=== PATIENT | male | born 1995 | race African-American/Black ===

== ENCOUNTER 2024-12-12 10:02 | Emergency (ER) | payer OTHER, SELFPAY ==
--- NOTE | ~2024-12-12 | XR_ITS ---
CLINICAL HISTORY: pain 3 views lumbar spine Comparison: None Findings: Normal vertebral body alignment. No acute fractures or dislocation. No significant degenerative change. IMPRESSION: No acute findings. This document has been electronically signed by: Dalila Soliz MD on 12/12/2024 16:58:02
[2024-12-12 10:11] VITALS: BP 128/84; PULSE 78; RESP 16; TEMP 36.8; O2SAT 97; BMI 26.2
[2024-12-12 16:25] VITALS: BP 119/75; PULSE 63; RESP 18; O2SAT 100
--- NOTE | 2024-12-12 17:17 | ED_ITS ---
HPI - Back Pain/Injury General Chief Complaint: Back Pain/Injury Stated Complaint: Back pain Time Seen by Provider: 12/12/24 17:20 Source: patient and RN notes reviewed Mode of arrival: ambulatory Limitations: no limitations History of Present Illness ED Provider: Debora Ramos PA-C HPI Narrative: This is a 29-year-old male who presents emergency department with complaints of back pain for the last 2 weeks. Patient denies any recent trauma, injury, heavy lifting or falls. He denies any numbness, tingling, or weakness. No fevers, chills, chest pain, shortness of breath, abdominal pain, nausea, vomiting or diarrhea. No urinary symptoms. No urinary or bowel retention or incontinence. Denies history of back pain in the past. No history of IVDA. Denies taking any medications at home to treat his current symptoms. Back pain worsens with movement. She also states that he has had dental pain, states that his left upper dentition has cracked, and he has had increased pain. He states that he has had sensitivity over this tooth. No facial swelling. He has a dental appointment tomorrow. No difficulty swallowing or breathing. MD elicited complaint: back pain Onset (ago): day(s) Timing: constant Severity: moderate Similar Symptoms Previously: No Quality: aching Location: lumbar spine Exacerbating factors: movement Relieving factors: none Associated symptoms: denies other symptoms Work related injury: No Related Data Previous Rx's ?Medication ?Instructions ?Recorded acetaminophen 500 mg tablet 1,000 mg (2 x 500 mg) PO Q8H PRN 12/12/24 (Tylenol Extra Strength) pain #30 tabs amoxicillin 875 mg-potassium 1 tab PO BID 7 days #14 tabs 12/12/24 clavulanate 125 mg tablet ibuprofen 600 mg tablet 600 mg PO Q6H PRN pain #30 tabs 12/12/24 lidocaine 5 % topical patch 1 patch topical DAILY #30 ea 12/12/24 Allergies Allergy/AdvReac Type Severity Reaction Status Date / Time No Known Allergies Allergy Verified 12/12/24 10:14 Review of Systems Review of Systems: Yes all other systems are reviewed and are negative Constitutional: Constitutional: Reports as per [facility] Social History Social History Advance Directives: No Advance Directives Information Provided: No Physical Exam Vital Signs: Vital Signs: Last Vital Signs Temp 98.6 F 12/12/24 17:54 Pulse 63 12/12/24 17:54 Resp 18 12/12/24 17:54 BP 119/75 12/12/24 17:54 Pulse Ox 100 12/12/24 17:54 O2 Del Method Room Air 12/12/24 17:54 BMI result Body Mass Index 26.2 Const: General: cooperative, comfortable and no acute distress Orientation/consciousness: patient oriented x3 Limitations: no limitations HEENT: Other: Tooth 16. With mild tenderness palpation, no obvious dental decay. No surroun ding erythema or warmth. No fluctuance or induration. No evidence of abscess. No trismus, drooling, or dysphonia. Head: Yes normal to inspection, Yes normocephalic and Yes atraumatic Ears: hearing grossly normal bilaterally General nose exam: Normal external nose present Face and sinus: Yes normal facial exam Mouth: Normal oral and palatal mucosa present, oropharynx normal and moist mucous membranes Teeth and gingiva: other Throat: Yes posterior oropharynx normal Eyes: General: appearance normal, both eyes and all related structures Eyelids: Yes eyelids normal Conjunctivae: conjunctivae normal Sclerae: sclerae normal Pupils: Equal, round and reactive pupils present EOM: EOMs intact bilaterally Neck: Neck: Yes normal visual inspection, Yes full ROM and Yes no lymphadenopathy Lymphatic: no lymphadenopathy noted Chest: Chest palpation & inspection: normal inspection of the chest Resp: Effort & Inspection: normal respiratory effort and able to speak in complete sentences Auscultation: clear to auscultation bilaterally, no crackles, no rales, no rhonchi and no wheezes Cardio: Rate: regular rate Rhythm: regular rhythm Heart sounds: S1 normal heart sound present and S2 normal heart sound present GI: Inspection: Yes normal to inspection Back/Spine/Pelvis: Other: No midline spine tenderness on examination, mild tenderness palpation along the lumbar paraspinous muscles bilaterally, pain with extension and flexion of the back as well as lateral movements. DTRs are 2+. No overlying skin changes or warmth. Skin: General skin exam: no rashes or lesions noted Trauma: no lacerations or abrasions Wounds: no wounds Neuro: General: patient oriented x3 and moves all extremities Cranial nerves: Yes Equal, round and reactive pupils present Extrem: General: Yes normal to inspection Right upper extremity: normal to inspection Left upper extremity: normal to inspection Right lower extremity: normal to inspection Left lower extremity: normal to inspection Medical Decision Making Medical Decision Making MDM Narrative: This is a 29-year-old male, with no known medical problems, [facility] complaints of low back pain for the last 2 weeks. On arrival, vital signs within normal limits. He is speaking in full sentences under no acute distress. He is ambulatory with steady gait. Patient with tenderness palpation along the lumbar paraspinous muscles. X-rays were obtained revealing no acute abnormalities. No red flag back symptoms. No history of IVDA. This patient presents with back pain most consistent with lumbago. Differential diagnoses includes lumbago versus musculoskeletal spasm / strain versus sciatica.No back pain red flags on history or physical. Presentation not consistent with fracture (no trauma, no bony tenderness to palpation), cauda equina syndrome (no bowel or urinary incontinence/retention, no saddle anesthesia, no distal weakness), pyelonephritis (afebrile, no CVAT, no urinary symptoms).Discussed findings with patient. Also states that he has had left upper dental pain. He has tenderness palpation along this left upper tooth, will treat with course of Augmentin. He has a follow-up with a dentist tomorrow. Given strict return precautions. He understands and agrees with plan. Patient stable for discharge. Differential Diagnosis Differential Diagnoses: The differential diagnosis associated with the presentation includes Lumbar strain, sprain, contusion, fracture Radiology Impression Discussion of test interpretation with radiology: I have reviewed the radiologist's reading. Radiologist Impression: [address] [address] XRay Report Signed Patient: Juan Topete MR#: [id number] : 1995 Acct:[id number] Age/Sex: 29 / M ADM Date: 12/12/24 Loc: HO.ED Attending Dr: Ordering Physician: Debora Ramos Date of Service: 12/12/24 Procedure(s): XR lumbar spine 2-3V Accession Number(s): [id number] cc: Debora Ramos; Physician,Unknown ~ CLINICAL HISTORY: pain 3 views lumbar spine Comparison: None Findings: Normal vertebral body alignment. No acute fractures or dislocation. No significant degenerative change. IMPRESSION: No acute findings. This document has been electronically signed by: Dalila Soliz MD on 12/12/2024 16:58:02 Discharge Plan Discharge Clinical Impression: Back pain, Pain, dental Patient Disposition: Home, Self-Care Instructions: Acute Low Back Pain (ED), Back Pain (ED) Additional Instructions: You were seen in the emergency department due to back pain and dental pain. Your x-ray was normal. Your symptoms are likely attributed to musculoskeletal pain, please alternate between ibuprofen and or Tylenol. You can use Lidoderm patches as needed for pain. Gentle stretching, heat or ice can also help. Do not directly apply heat or ice to the Lidoderm patches as this can cause your skin to burn. I am starting you on an antibiotic for your dental pain. Please take full course of antibiotic as directed. You need to follow-up with a dentist, call to make an appointment. If any new or worsening symptoms occur including but not limited to facial swelling, fevers, chills, chest pain, shortness of breath, please seek emergent care. Prescriptions: New ibuprofen 600 mg tablet 600 mg PO Q6H PRN (Reason: pain) Qty: 30 0RF amoxicillin-pot clavulanate 875-125 mg tablet 1 tab PO BID 7 Days Qty: 14 0RF acetaminophen [Tylenol Extra Strength] 500 mg tablet 1,000 mg PO Q8H PRN (Reason: pain) Qty: 30 0RF lidocaine 5 % adhesive patch,medicated 1 patch topical DAILY Qty: 30 0RF Rx Instructions: leave on most painful area for up to 12 hrs Stand Alone Forms: Work/School Release Interventions: ED Discharge Assessment Last Done: 12/12/24 17:54 Discharge Date/Time: 12/12/24 17:56 Print Language: Malian
[2024-12-12 17:54] VITALS: BP 119/75; PULSE 63; RESP 18; TEMP 37; O2SAT 100
== END 2024-12-12 17:56 | disposition home or self-care (01) ==
LOC: HO.ED 17:50
PROVIDERS: Emergency Provider Emergency Medicine; PCP Family Medicine
DX: M54.50 Low back pain, unspecified (principal); K08.89 Other specified disorders of teeth and supporting structures
CPT/HCPCS: 72100; 99282; 99283

== ENCOUNTER → 2024-12-12 16:23 | Outpatient (BNV) | payer OTHER, SELFPAY | PROVIDERS: Visit Provider Radiology Diagnostic Radiology | DX: M54.50 Low back pain, unspecified (principal) | CPT/HCPCS: 72100 ==

== ENCOUNTER 2025-01-13 11:55 | Outpatient (AMB) | payer OTHER, SELFPAY ==
--- NOTE | 2025-01-13 11:58 | MHC.PC.OV ---
Vital Signs 01/13/25 12:08 Height 5 ft 8 in Weight 173 lb BMI 26.3 BP 120/82 Blood Pressure Location Rt brachial Position Sitting Respiration 14 Pulse 87 Pulse Source Pulse Oximeter Pulse Oximetry (%) 97 Oxygen Delivery Method Room Air Intake Visit Reasons: est care/back pain Intake Note: Juan presents in the office today to establish care. Patient is suffering from low back pain that started about 2 months ago. Patient has taken OTC Ibuprofen but it does not work. Could have been from removing snow. 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 Patient moved from [facility] to the [facility] 8 months ago. Patient was initially living with his uncle, and he now lives in an apartment in [place]. He recently completed a [employer] program. Needs to schedule a physical. He has vaccine records that he will upload to the patient portal. He is agreeable to routine labs including screening test for STIs and HIV. The patient was seen at the emergency department on 12/12/2024 for back pain. He denied trauma, injury, heavy lifting or falls. He also endorsed dental pain in the left upper molar area. Reported that his tooth had cracked. X-ray of his lower back was normal. He was discharged with ibuprofen and Tylenol, and he says they do not help. He took a 7 day course of Augmentin for dental pain. He has not gotten established with a dentist yet. Patient says the tooth still hurts, but there is no drainage, swelling, fevers, chills or discharge. Patient says his back pain began about 2 months ago. It is worse when he bends forward and leans back. Does not recall injury or inciting event. Pain does not radiate. Pain is across both sides of the lower back. He describes it as sore and tight. There is no loss of bowel or bladder control. There is no numbness or tingling or weakness. Patient endorses mild situational depression since moving to [facility]. He misses his family. 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 He was also depressed when he did not have a job though he was higher last week. He is open to therapy. ROS: Constitutional: No unexplained weight loss, fever, chills, fatigue or night sweats. ENT: No hearing loss, sneezing, congestion, runny nose or sore throat. Respiratory: No shortness of breath, cough or sputum production. Cardiovascular: No chest pain, chest pressure or chest discomfort. Gastrointestinal: No anorexia, nausea, vomiting or diarrhea. No abdominal pain Genitourinary: No dysuria, hematuria, urinary frequency. Neurologic: No headache, dizziness, syncope, unilateral weakness, ataxia, numbness or tingling in the extremities. Skin: No rash Psychiatric: No SI/HI. Physical exam: Constitutional: Alert, in no distress. Mouth/Throat: No oropharyngeal lesions or obvious signs of decay or abscess. No swelling, discharge or redness. Neck: Supple, Full range of motion. No lymphadenopathy. Respiratory: Clear to auscultation. Cardiovascular: S1 S2 regular. No murmurs. Gastrointestinal: Abdomen soft, non-tender, non-distended. Normal bowel sounds. No palpable masses. Neurologic: No focal neurological deficits. Symmetric patellar reflexes. Moves all extremities spontaneously. Sensation intact bilaterally. Musculoskeletal: The back is nontender. There is no midline tenderness. Patient has pain with lumbar flexion and extension. Full range of motion. Negative straight leg raises bilaterally. Lower extremity strength 5/5 bilaterally. Extremities: Warm and well perfused. No clubbing, cyanosis or edema. 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 1. Little interest or pleasure in doing things: several days 2. Feeling down, depressed, or hopeless: several days 3. Trouble falling or staying asleep, or sleeping too much: several days 4. Feeling tired or having little energy: not at all 5. Poor appetite or overeating: not at all 6. Feeling bad about yourself - or that you are a failure or have let yourself or your family down: not at all 7. Trouble concentrating on things, such as reading the newspaper or watching television: not at all 8. Moving or speaking so slowly that other people could have noticed. Or the opposite - being so fidgety or restless that you have been moving around a lot more than usual: not at all 9. Thoughts that you would be better off or of hurting yourself in some way: not at all Total score: 3 Depression Screening Interpretation: Negative Depression Screening Done: Yes Source: Developed by Drs. Ismael Morrison, Gabriella Anderson, Kem Santiago and colleagues, with an educational sandee from [employer]. Thrive Questionnaire Date Thrive assessed: 01/06/25 I am a: Patient What is your living situation today?: I have a steady place to live Within the past 12 months, did the food you bought not last and you didn't have the money to get more?: Sometimes True Within the past 12 months, did you worry whether your food would run out before you got money to buy more?: Sometimes True Do you have trouble paying for medicines?: Yes Do you have trouble getting transportation to medical appointments?: Yes Do you have trouble paying your heating and electricity bill?: Yes Do you have trouble taking care of your child, family member or friend?: Yes Do you have trouble with day-to-day activities such as bathing, preparing meals, shopping, managing finances, etc.?: No Are you currently unemployed and looking for a job?: Yes Are you interested in more education?: Yes Please select the resources that you would like help with: Paying for medicine and Education Currently or been in a relationship where the following occur: Controlled Financially THRIVE Score: 5 AUDIT C Alcohol Use Questionnaire (AUDIT-C) 1. How often do you have a drink containing alcohol?: Never 2. How many drinks containing alcohol do you have on a typical day when you are drinking?: 1 or 2 3. How often do you have six or more drinks on one occasion?: Never Total Score: 0 STANTON-7 AMB Questionnaire STANTON-7 Feeling nervous, anxious, or on edge: 0 = Not at all Not being able to stop or control worryin = Not at all Worrying too much about different things: 1 = Several days Trouble relaxin = Several days Being so restless that it is hard to sit still: 1 = Several days Becoming easily annoyed or irritable: 1 = Several days Feeling afraid as if something awful might happen: 0 = Not at all Total STANTON-7 score (0-4 normal; 5-9 mild; 10-14 moderate; 15-21 severe): 4 Source: Developed by Drs. Ismael Morrison, Gabriella Anderson, Kem Santiago and colleagues, with an educational sandee from [employer]. Physical exam (Primary Care) Vital Signs: Last Vital Signs Pulse 87 01/13/25 12:08 Resp 14 01/13/25 12:08 BP 120/82 01/13/25 12:08 Pulse Ox 97 01/13/25 12:08 Oxygen Delivery Method Room Air 01/13/25 12:08 BMI result Body Mass Index 26.3 Tobacco/Smoking Status: Tobacco use Status Tobacco use date assessed 01/13/25 01/13/25 12:12 Patient Tobacco Use Status Never used Tobacco 01/13/25 12:12 e-Cigarette/Vaping Use Never Used 01/13/25 12:12 PHQ-9: PHQ-9 Score PHQ-9: Total score 3 01/13/25 12:20 Depression Screening Interpretation: Negative Thrive Assessment: Date of Thrive Assessment Date Thrive assessed 01/06/25 01/13/25 12:00 Currently or been in a relationship where the following occur: Controlled Financially Coding Level of Care Code New Pt Level 4 (57125) Complex EM visit Add On G2211 Diagnoses Situational depression F43.21 Lumbago M54.50 Screening examination for STI Z11.3 Screening for cardiovascular condition Z13.6 Pain, dental K08.89 Assessment & Plan Assessment & Plan (1) Situational depression: Code(s): F43.21 - Adjustment disorder with depressed mood Category: Medical Plan: Referred to behavioral health for counseling. (2) Lumbago: Code(s): M54.50 - Low back pain, unspecified Category: Medical Plan: Prescribed lidocaine patches. Reviewed dosing of ibuprofen and Tylenol. Refer to physical therapy. Patient was given the contact number to call select physical therapy in [place]. Re-evaluate in 6-8 weeks. (3) Screening examination for STI: Code(s): Z11.3 - Encounter for screening for infections with a predominantly sexual mode of transmission Category: Medical (4) Screening for cardiovascular condition: Code(s): Z13.6 - Encounter for screening for cardiovascular disorders Category: Medical (5) Pain, dental: Code(s): K08.89 - Other specified disorders of teeth and supporting structures Category: Medical Plan: I will send a message to Community navigation to see if we can assist in finding a dental home for the patient. Plan Follow up in 1-2 weeks for a physical exam. Orders: Orders Complete Blood Count no Diff Today M54.50 - Low back pain, unspecified, Z11.3 - Encounter for screening for infections with a predominantly sexual mode of transmission, Z13.6 - Encounter for screening for cardiovascular disorders Comprehensive Met. Panel Today M54.50 - Low back pain, unspecified, Z11.3 - Encounter for screening for infections with a predominantly sexual mode of transmission, Z13.6 - Encounter for screening for cardiovascular disorders CT NG by PCR Today M54.50 - Low back pain, unspecified, Z11.3 - Encounter for screening for infections with a predominantly sexual mode of transmission, Z13.6 - Encounter for screening for cardiovascular disorders, Z20.2 - Contact with and (suspected) exposure to infections with a predominantly sexual mode of transmission HIV Ab/Ag Today M54.50 - Low back pain, unspecified, Z11.3 - Encounter for screening for infections with a predominantly sexual mode of transmission, Z13.6 - Encounter for screening for cardiovascular disorders, Z20.2 - Contact with and (suspected) exposure to infections with a predominantly sexual mode of transmission PT Evaluation and Treatment Today M54.50 - Low back pain, unspecified Lipid Panel Today E78.5 - Hyperlipidemia, unspecified, M54.50 - Low back pain, unspecified, Z11.3 - Encounter for screening for infections with a predominantly sexual mode of transmission, Z13.6 - Encounter for screening for cardiovascular disorders Syphilis Screen Today M54.50 - Low back pain, unspecified, Z11.3 - Encounter for screening for infections with a predominantly sexual mode of transmission, Z13.6 - Encounter for screening for cardiovascular disorders, Z20.2 - Contact with and (suspected) exposure to infections with a predominantly sexual mode of transmission Hepatitis C Antibody Today M54.50 - Low back pain, unspecified, Z11.3 - Encounter for screening for infections with a predominantly sexual mode of transmission, Z13.6 - Encounter for screening for cardiovascular disorders, Z20.2 - Contact with and (suspected) exposure to infections with a predominantly sexual mode of transmission Medications: New lidocaine 5% leave on most painful area for up to 12 hrs 1 patch topical DAILY PRN 30 ea 0RF pain Discontinued amoxicillin-pot clavulanate 875-125 mg Discontinued Reason: Patient Completed Course 1 tab PO BID 7 days 14 tabs 0RF lidocaine 5% leave on most painful area for up to 12 hrs Discontinued Reason: Patient no longer taking 1 patch topical DAILY 30 ea 0RF
[2025-01-13 12:08] VITALS: BP 120/82; PULSE 87; RESP 14; O2SAT 97; BMI 26.3
== END 2025-01-13 12:50 | disposition home or self-care (01) ==
LOC: HO.HMCFM 11:55
PROVIDERS: PCP Physician Assistant Medical; Visit Provider Physician Assistant Medical
DX: F43.21 Adjustment disorder with depressed mood (principal); M54.50 Low back pain, unspecified; Z11.3 Encounter for screening for infections with a predominantly sexual mode of transmission; Z13.6 Encounter for screening for cardiovascular disorders; K08.89 Other specified disorders of teeth and supporting structures

== ENCOUNTER 2025-01-13 12:57 | Outpatient (REF) | payer OTHER, SELFPAY ==
[2025-01-13 14:06] LABS: Hematocrit 44.2 % (42.0-52.0); Hemoglobin 15.8 g/dl (14.0-18.0); Mean Corpuscular HGB Conc 35.7 g/dl (31.0-36.0); Mean Corpuscular Hemoglobin 29.1 pg (27.0-33.0); Mean Corpuscular Volume 81.4 fL (80.0-98.0); Mean Platelet Volume 11.4 fL (9.4-12.4); Platelet Count 145 X10*3/uL (160-400); Red Blood Count 5.43 X10*6/uL (4.60-5.80); Red Cell Distribution Width 13.1 % (11.0-16.0); White Blood Count 3.2 X10*3/uL (4.8-10.8)
[2025-01-13 14:45] LABS: Alanine Aminotransferase 57 U/L (0-40); Albumin Level 4.4 g/dL (3.5-5.0); Alkaline Phosphatase 62 U/L (39-117); Anion Gap 8 (12-20); Aspartate Amino Transferase 33 U/L (5-37); Bilirubin Total 1.1 mg/dL (0.0-1.0); Blood Urea Nitrogen 12 mg/dL (9-16); Calcium 9.4 mg/dL (8.4-10.2); Carbon Dioxide 26 mmol/L (22-29); Chloride 111 mmol/L (96-108); Cholesterol 168 mg/dL (<200); Estimated Glomerular Filt Rate > 60; Glucose Random 94 mg/dL (60-115); HDL Cholesterol 51 mg/dL (>40); LDL Cholesterol Calculated 104 mg/dL (<100); Potassium 3.8 mmol/L (3.3-5.1); Sodium 141 mmol/L (135-145); Total Protein 7.4 g/dL (6.5-8.0); Triglycerides 69 mg/dL (<150)
[2025-01-14 04:20] LABS: Syphilis Screen Nonreactive (Nonreactive)
[2025-01-14 04:32] LABS: HIV AB/AG Nonreactive (Nonreactive); HIV Num 1 0.06 S/CO (0.00-0.99); ~HepC Num1 0.25 S/CO (0.00-0.79); ~Hepatitis C Antibody Nonreactive (Nonreactive)
== END 2025-01-13 12:58 | disposition home or self-care (01) ==
LOC: HO.WFDLDS 12:57
PROVIDERS: Visit Provider Physician Assistant Medical
DX: M54.50 Low back pain, unspecified (principal); E78.5 Hyperlipidemia, unspecified; Z13.5 Encounter for screening for eye and ear disorders; Z13.6 Encounter for screening for cardiovascular disorders; Z20.2 Contact with and (suspected) exposure to infections with a predominantly sexual mode of transmission
CPT/HCPCS: 36415; 80053; 80061; 85027; 86780; 86803; 87389

== ENCOUNTER 2025-02-17 14:06 | Outpatient (AMB) | payer OTHER, SELFPAY ==
--- NOTE | 2025-02-17 14:09 | MHC.PC.OV ---
Vital Signs 02/17/25 14:15 Height 5 ft 8 in Weight 170 lb BMI 25.8 BP 118/72 Blood Pressure Location Rt brachial Position Sitting Pulse 74 Pulse Source Pulse Oximeter Temp 97.9 F Temp Source Temporal Artery Scan Pulse Oximetry (%) 97 Oxygen Delivery Method Room Air Intake Visit Reasons: physical exam, please sign pt up for portal Intake Note: Juan presents in the office today for his annual physical exam. Allergies No Known Allergies Allergy (Verified 02/17/25 14:12) Tobacco use date assessed: 02/17/25 Dental Screening Dental Screen Date: 02/17/25 Did you have a dental visit in the last 12 months?: Yes Did you have a dental problem in the last 6 months where you did not have access to dental care?: No Was dental information given to patient?: Patient has dentist HPI HPI Comments History of Present Illness Details This is a 29-year-old male with no significant past medical history presenting for a physical exam. Patient moved from [facility] to the [facility] 8 months ago. Patient was initially living with his uncle, and he now lives in an apartment in [place]. 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 On routine blood work he had LFT elevation, mild thrombocytopenia and mildly decreased white blood cells. At the time he was dealing with dental issues and a dental infection. Since then he saw a dentist for a cavity filling and removal of the tooth. He has no residual dental pain. No fevers or chills. He had also been using a lot of pzok-rqs-fhxdmdh pain relievers like ibuprofen and Tylenol for dental pain and back pain. Subsequently he decreased use. He denies unexplained fevers, chills, weight loss, night sweats, bleeding or bruising. He denies alcohol use. Back pain-he had three PT sessions so far, and he notes some improvement, but his back still hurts when he is walking around. There is no loss of bowel or bladder control. There is no numbness or tingling or weakness. He declined mental health counseling when they reached out because he has been feeling better. He will monitor this. He received flu and COVID-19 vaccines. He had a TB test. He is unsure if he received Tdap, but he thinks he did because he works as a [employer]ER. He will check his records. ROS: Constitutional: No unexplained weight loss, fever, chills, fatigue or night sweats. Eyes: No vision changes, blurry vision, double vision, eye pain, eye redness, eye discharge. ENT: No hearing loss, sneezing, congestion, runny nose or sore throat. Respiratory: No shortness of breath, cough or sputum production. Cardiovascular: No chest pain, chest pressure or chest discomfort. No palpitations or pedal edema. Gastrointestinal: No anorexia, nausea, vomiting or diarrhea. No abdominal pain or blood in stool. Genitourinary: No dysuria, hematuria, urinary frequency. Neurologic: No headache, dizziness, syncope, unilateral weakness, ataxia, numbness or tingling in the extremities. Musculoskeletal: see HPI Hematologic/Lymphatics: No bleeding or bruising. No painful lymph nodes. Skin: No rash or itching. Endocrine: No cold or heat intolerance. No polyuria or polydipsia. Psychiatric: No depression or anxiety. No SI/HI. Physical exam: Constitutional: Alert, in no distress. Head: Normocephalic. Eyes: Pupils are equal, round and reactive to light. Extraocular muscles intact. Ear, Nose and Throat: Canals clear. TMs normal. Normal nasal mucosa. No nasal discharge. No oral lesions. Neck: Supple, Full range of motion. No lymphadenopathy. No palpable thyroid masses. Respiratory: Clear to auscultation. Cardiovascular: S1 S2 regular. No murmurs. Gastrointestinal: Abdomen soft, non-tender, non-distended. Normal bowel sounds. No palpable masses. 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 No masses, palpable hernias, urethral discharge or discoloration. Neurologic: No focal neurological deficits. Symmetric patellar reflexes. Moves all extremities spontaneously. Sensation intact bilaterally. Skin: No rashes Musculoskeletal: No gross deformities. Normal range of motion. Extremities: Warm and well perfused. No clubbing, cyanosis or edema. 3+ peripheral pulses bilaterally. 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 1. Little interest or pleasure in doing things: not at all 2. Feeling down, depressed, or hopeless: not at all 3. Trouble falling or staying asleep, or sleeping too much: not at all 4. Feeling tired or having little energy: not at all 5. Poor appetite or overeating: not at all 6. Feeling bad about yourself - or that you are a failure or have let yourself or your family down: not at all 7. Trouble concentrating on things, such as reading the newspaper or watching television: several days 8. Moving or speaking so slowly that other people could have noticed. Or the opposite - being so fidgety or restless that you have been moving around a lot more than usual: not at all 9. Thoughts that you would be better off or of hurting yourself in some way: not at all Total score: 1 Depression Screening Interpretation: Negative Depression Screening Done: Yes 68030 - PHQ-9 Billing: Patient declined-do not bill Source: Developed by Drs. Ismael Morrison, Gabriella Anderson, Kem Santiago and colleagues, with an educational sandee from [employer]. Thrive Questionnaire Date Thrive assessed: 02/17/25 I am a: Patient What is your living situation today?: I have a steady place to live Within the past 12 months, did the food you bought not last and you didn't have the money to get more?: Sometimes True Within the past 12 months, did you worry whether your food would run out before you got money to buy more?: Sometimes True Do you have trouble paying for medicines?: Yes Do you have trouble getting transportation to medical appointments?: Yes Do you have trouble paying your heating and electricity bill?: Yes Do you have trouble taking care of your child, family member or friend?: Yes Do you have trouble with day-to-day activities such as bathing, preparing meals, shopping, managing finances, etc.?: No Are you currently unemployed and looking for a job?: Yes Are you interested in more education?: Yes Currently or been in a relationship where the following occur: Controlled Financially THRIVE Score: 5 AUDIT C Alcohol Use Questionnaire (AUDIT-C) 1. How often do you have a drink containing alcohol?: Never Total Score: 0 Score Reviewed/Action Taken: No STANTON-7 AMB Questionnaire STANTON-7 Date STANTON - 7 assessed: 02/17/25 Feeling nervous, anxious, or on edge: 0 = Not at all Not being able to stop or control worryin = Not at all Worrying too much about different things: 0 = Not at all Trouble relaxin = Not at all Being so restless that it is hard to sit still: 0 = Not at all Becoming easily annoyed or irritable: 0 = Not at all Feeling afraid as if something awful might happen: 0 = Not at all Total STANTON-7 score (0-4 normal; 5-9 mild; 10-14 moderate; 15-21 severe): 0 Source: Developed by Drs. Ismael Morrison, Gabriella Anderson, Kem Santiago and colleagues, with an educational sandee from [employer]. STANTON-7 Assessment Billing STANTON-7 Assessment Tool: STANTON-7 Assessment 35581 Physical exam (Primary Care) Vital Signs: Last Vital Signs Temp 97.9 F 02/17/25 14:15 Pulse 74 02/17/25 14:15 BP 118/72 02/17/25 14:15 Pulse Ox 97 02/17/25 14:15 Oxygen Delivery Method Room Air 02/17/25 14:15 BMI result Body Mass Index 25.8 Tobacco/Smoking Status: Tobacco use Status Tobacco use date assessed 02/17/25 02/17/25 14:10 Patient Tobacco Use Status Never used Tobacco 02/17/25 14:13 e-Cigarette/Vaping Use Never Used 02/17/25 14:13 PHQ-9: PHQ-9 Score PHQ-9: Total score 1 02/17/25 14:18 Depression Screening Interpretation: Negative Thrive Assessment: Date of Thrive Assessment Date Thrive assessed 02/17/25 02/17/25 14:18 Currently or been in a relationship where the following occur: Controlled Financially Coding Level of Care Code Est Pt Prev Care 18-39y(25173) Diagnoses LFT elevation R79.89 Lumbago M54.50 Routine physical examination Z00.00 Additional Codes STANTON-7 Assessment Billing - STANTON-7 Assessment Tool: STANTON-7 Assessment [id number] ([id number]) Assessment & Plan Assessment & Plan (1) LFT elevation: Code(s): R79.89 - Other specified abnormal findings of blood chemistry Category: Medical (2) Lumbago: Code(s): M54.50 - Low back pain, unspecified Category: Medical (3) Routine physical examination: Code(s): Z00.00 - Encounter for general adult medical examination without abnormal findings Category: Medical Plan LFT elevation may have been related to taking ujaz-sjw-hrlhrfm pain relievers frequently. Patient also had a dental infection at the time which has subsequently resolved. This may have accounted for the abnormal CBC. He will return in 4 weeks to repeat the labs. We will review lab results at his follow up appointment. He will continue physical therapy and follow up in 6 weeks for re-evaluation of back pain. Patient is seen today for a routine physical. As part of this visit we reviewed the following issues, which are considered and essential part of preventative health in this age group: - Testicular cancer screening, which includes self exam teaching - Blood pressure screening annually - Cholesterol screening - Nutritional and exercise counseling - Counseling of injury prevention including fire prevention, smoke alarms and seat belt usage - Screening for depression - Prevention of and/or testing for infectious diseases - Education about skin cancer - Recommendations about immunizations - Recommendation of an eye exam - Screening for substance abuse - Genetic cancer risk screening
[2025-02-17 14:15] VITALS: BP 118/72; PULSE 74; TEMP 36.6; O2SAT 97; BMI 25.8
== END 2025-02-17 14:51 | disposition home or self-care (01) ==
LOC: HO.HMCFM 14:07
PROVIDERS: PCP Physician Assistant Medical; Visit Provider Physician Assistant Medical
DX: R79.89 Other specified abnormal findings of blood chemistry (principal); M54.50 Low back pain, unspecified; Z00.00 Encounter for general adult medical examination without abnormal findings

== ENCOUNTER → 2025-02-17 14:06 | Outpatient (BNVA) | payer OTHER, SELFPAY | PROVIDERS: PCP Physician Assistant Medical; Visit Provider Physician Assistant Medical | DX: Z00.00 Encounter for general adult medical examination without abnormal findings (principal); R79.89 Other specified abnormal findings of blood chemistry; M54.50 Low back pain, unspecified | CPT/HCPCS: 96127 ==

== ENCOUNTER 2025-04-05 11:19 | Outpatient (REF) | payer OTHER, SELFPAY ==
[2025-04-05 13:59] LABS: MANUAL DIFF FLAG NO
[2025-04-05 14:16] LABS: Basophils Percent Auto 0.3 % (0-2); Eosinophils Percent Auto 0.6 % (0-4); Hemoglobin 15.8 g/dl (14.0-18.0); Lymphocytes Absolute Auto 1.6 X10*3/uL (1.2-4.9); Lymphocytes Percent Auto 46.3 % (20-40); Mean Corpuscular HGB Conc 35.1 g/dl (31.0-36.0); Mean Corpuscular Hemoglobin 29.1 pg (27.0-33.0); Mean Corpuscular Volume 82.9 fL (80.0-98.0); Monocytes Absolute Auto 0.3 X10*3/uL (0.1-1.2); Neutrophils Absolute Auto 1.5 x10*3/uL (2.0-8.3); Neutrophils Percent Auto 44.8 % (45-73); Platelet Count 128 X10*3/uL (160-400); Red Blood Count 5.43 X10*6/uL (4.60-5.80); Red Cell Distribution Width 12.7 % (11.0-16.0); White Blood Count 3.4 X10*3/uL (4.8-10.8)
[2025-04-05 14:44] LABS: Vitamin B12 380 pg/mL (200-900)
[2025-04-05 18:05] LABS: Alanine Aminotransferase 34 U/L (0-40); Aspartate Amino Transferase 29 U/L (5-37); Iron 68 mcg/dL (45-160); Percent Iron Saturation 28 % (15-50); Total Iron Binding Capacity 242 mcg/dL (228-428); Unsaturated Iron Binding 174 ug/dL
== END 2025-04-05 11:20 | disposition home or self-care (01) ==
LOC: HO.HMGCLDS 11:19
PROVIDERS: PCP Physician Assistant Medical; Visit Provider Physician Assistant Medical
DX: Z91.89 Other specified personal risk factors, not elsewhere classified (principal); R79.89 Other specified abnormal findings of blood chemistry
CPT/HCPCS: 36415; 82607; 83540; 84450; 84460; 85025

== ENCOUNTER 2025-04-07 09:46 | Outpatient (AMB) | payer OTHER, SELFPAY ==
--- NOTE | 2025-04-07 09:49 | A.OFFPC_ITS ---
Vital Signs 04/07/25 09:52 Height 5 ft 8 in Weight 171 lb BMI 26.0 BP 116/70 Blood Pressure Location Rt brachial Position Sitting Pulse 63 Pulse Source Pulse Oximeter Temp 97.9 F Temp Source Temporal Artery Scan Pulse Oximetry (%) 98 Oxygen Delivery Method Room Air Intake Visit Reasons: review labs/follow up back pain Intake Note: Juan presents in the office today for a follow up lab review and back pain. Allergies No Known Allergies Allergy (Verified 04/07/25 09:51) Tobacco use date assessed: 04/07/25 Dental Screening Dental Screen Date: 04/07/25 Did you have a dental visit in the last 12 months?: Yes Did you have a dental problem in the last 6 months where you did not have access to dental care?: No Was dental information given to patient?: Patient has dentist HPI HPI Comments History of Present Illness Details This is a 29-year-old male presenting for a follow up appointment to review labs. Patient moved from [facility] to the [facility] in 2023. Patient was initially living with his uncle, and he now lives in an apartment in [place]. 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 Back pain-he did physical therapy, and he initially noted some improvement, but his symptoms returned and are worse. He endorses lower back pain when he is bending, walking, standing, lifting. It is better when he lays down at night or if he is sitting still. The pain at worst is 8/10. It is worse during his shift says a EXTENSION SERVICE ADVISOR. He requests a letter for light duty. The pain does not radiate. There is no numbness, tingling or weakness in his extremities or loss of bowel or bladder control. X-ray of the lumbar spine on 12/12/2024 showed no abnormal findings. He denies history of trauma. Past treatments include acetaminophen, lidocaine patches, ibuprofen and cyclobenzaprine. He is not taking anything currently. On routine blood work he had LFT elevation, mild thrombocytopenia and mildly decreased white blood cells. At the time he was dealing with dental issues and a dental infection. Since then he saw a dentist for a cavity filling and removal of the tooth. He has no residual dental pain. No fevers or chills. He had also been using a lot of splv-hee-dgnrfyq pain relievers like ibuprofen and Tylenol for dental pain and back pain. Subsequently he decreased use. He denies unexplained fevers, chills, weight loss, night sweats, bleeding or bruising. He denies alcohol use. Testing for HIV, syphilis and hepatitis-C was negative. He repeated his blood work on 04/05/2025. Liver enzymes normalized. Leukopenia and thrombocytopenia persists with a white blood cell count of 3400 and platelet count of a 128,000 down from 145,000. B12 and iron are normal. To his knowledge there is no one in his family with a hematological disorder or cancer. ROS: Constitutional: No unexplained weight loss, fever, chills, fatigue or night sweats. Eyes: No vision changes, blurry vision, double vision, eye pain, eye redness, eye discharge.. Respiratory: No shortness of breath, cough or sputum production. Cardiovascular: No chest pain, chest pressure or chest discomfort. No palpitations or pedal edema. Gastrointestinal: No anorexia, nausea, vomiting or diarrhea. No abdominal pain or blood in stool. Genitourinary: No dysuria, hematuria, urinary frequency. Neurologic: No headache, dizziness, syncope, unilateral weakness, ataxia, numbness or tingling in the extremities or saddle distribution. Musculoskeletal: see HPI Hematologic/Lymphatics: No bleeding or bruising. No painful lymph nodes. Skin: No rash or itching. Physical exam: Constitutional: Alert, in no distress. Neck: Supple, Full range of motion. No lymphadenopathy. No palpable thyroid masses. Respiratory: Clear to auscultation. Cardiovascular: S1 S2 regular. No murmurs. Gastrointestinal: Abdomen soft, non-tender, non-distended. Normal bowel sounds. No palpable masses. Neurologic: No focal neurological deficits. Symmetric patellar reflexes. Moves all extremities spontaneously. Sensation intact bilaterally. Skin: No rashes Musculoskeletal: Patient has lower back pain with flexion and extension and rotation of the lumbar spine. He has full range of motion. There is no midline spinal tenderness. Negative straight leg raises bilaterally. Lower extremity strength 5/5 bilaterally. Normal gait. Extremities: Warm and well perfused. No clubbing, cyanosis or edema. 3+ peripheral pulses bilaterally. 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 Current occupational exposures/hazards: No Cognitive needs: No Hearing needs: No Vision needs: No Questionnaire Thrive Questionnaire Date Thrive assessed: 02/17/25 I am a: Patient What is your living situation today?: I have a steady place to live Within the past 12 months, did the food you bought not last and you didn't have the money to get more?: Sometimes True Within the past 12 months, did you worry whether your food would run out before you got money to buy more?: Sometimes True Do you have trouble paying for medicines?: Yes Do you have trouble getting transportation to medical appointments?: Yes Do you have trouble paying your heating and electricity bill?: Yes Do you have trouble taking care of your child, family member or friend?: Yes Do you have trouble with day-to-day activities such as bathing, preparing meals, shopping, managing finances, etc.?: No Are you currently unemployed and looking for a job?: Yes Are you interested in more education?: Yes Currently or been in a relationship where the following occur: Controlled Financially THRIVE Score: 5 STANTON-7 AMB Questionnaire STANTON-7 Date STANTON - 7 assessed: 02/17/25 Source: Developed by Drs. Ismael Morrison, Gabriella Anderson, Kem Santiago and colleagues, with an educational sandee from [employer]. Physical exam (Primary Care) Vital Signs: Last Vital Signs Temp 97.9 F 04/07/25 09:52 Pulse 63 04/07/25 09:52 BP 116/70 04/07/25 09:52 Pulse Ox 98 04/07/25 09:52 Oxygen Delivery Method Room Air 04/07/25 09:52 BMI result Body Mass Index 26.0 Tobacco/Smoking Status: Tobacco use Status Tobacco use date assessed 04/07/25 04/07/25 09:55 Patient Tobacco Use Status Never used Tobacco 04/07/25 09:55 e-Cigarette/Vaping Use Never Used 04/07/25 09:55 Thrive Assessment: Date of Thrive Assessment Date Thrive assessed 02/17/25 04/07/25 09:55 Currently or been in a relationship where the following occur: Controlled Financially Coding Level of Care Code Est Pt Level 4 (66599) Complex EM visit Add On G2211 Diagnoses Lumbago M54.50 Abnormal CBC R79.89 Assessment & Plan Assessment & Plan (1) Lumbago: Code(s): M54.50 - Low back pain, unspecified Category: Medical Plan: The patient has persistent symptoms despite NSAIDs, physical therapy and modifying activity. I provided him with a note for work for light duty restrictions and allowances to rest if he is having back pain. Proceed with MRI of the lumbar spine for evaluation of potential disc herniation, spondylosis, nerve compression. He has no constitutional symptoms but given persistent abnormalities on CBC neoplastic lesion also needs to be ruled out with advanced imaging. He can continue with Tylenol 500 to a 1000 mg every 8 hours needed as needed for pain, lidocaine patches, alternating with he denies. Advised to avoid NSAIDs at this time given thrombocytopenia. Check labs for vitamin-D deficiency, Lyme, PATRICIA. See detailed list below. Refer to physiatry. (2) Abnormal CBC: Code(s): R79.89 - Other specified abnormal findings of blood chemistry Category: Medical Plan: Leukopenia and thrombocytopenia with unknown etiology. Advised patient to have additional labs drawn-see detailed list below. Refer to Heme-Onc for further evaluation. Plan Follow up in 8-10 weeks. Orders: Orders MR lumbar spine wo con 04/07/25 M54.50 - Low back pain, unspecified Vitamin D 25-OH (D2 and D3) Today M54.50 - Low back pain, unspecified, R79.89 - Other specified abnormal findings of blood chemistry C Reactive Protein Today M54.50 - Low back pain, unspecified, R79.89 - Other specified abnormal findings of blood chemistry Ferritin Today M54.50 - Low back pain, unspecified, R79.89 - Other specified abnormal findings of blood chemistry Lyme IgG/IgM w/reflex to WB Today M54.50 - Low back pain, unspecified, R79.89 - Other specified abnormal findings of blood chemistry PATRICIA Reflex Titer and Pattern Today M54.50 - Low back pain, unspecified, R79.89 - Other specified abnormal findings of blood chemistry Pathologist Review - CBC Today M54.50 - Low back pain, unspecified, R79.89 - Other specified abnormal findings of blood chemistry Complete Blood Count Auto Diff Today M54.50 - Low back pain, unspecified, R79.89 - Other specified abnormal findings of blood chemistry Referrals Physiatry Referral M54.50 - Low back pain, unspecified Hematology & Oncology Referral R79.89 - Other specified abnormal findings of blood chemistry Medications: Discontinued ibuprofen Discontinued Reason: Doctor's Order 600 mg PO Q6H PRN 30 tabs 0RF pain
[2025-04-07 09:52] VITALS: BP 116/70; PULSE 63; TEMP 36.6; O2SAT 98; BMI 26.0
== END 2025-04-07 10:29 | disposition home or self-care (01) ==
LOC: HO.HMCFM 09:47
PROVIDERS: PCP Physician Assistant Medical; Visit Provider Physician Assistant Medical
DX: M54.50 Low back pain, unspecified (principal); R79.89 Other specified abnormal findings of blood chemistry

== ENCOUNTER → 2025-04-21 14:27 | Outpatient (BNV) | payer OTHER, SELFPAY | PROVIDERS: PCP Physician Assistant Medical; Visit Provider Internal Medicine | DX: D61.818 Other pancytopenia (principal) | CPT/HCPCS: 99204 ==

== ENCOUNTER 2025-05-08 14:56 | Outpatient (AMB) | payer OTHER, SELFPAY ==
--- NOTE | 2025-05-08 15:29 | MHC.PC.OV ---
Vital Signs 05/08/25 15:32 Height 5 ft 8 in Weight 171 lb BMI 26.0 BP 102/82 Blood Pressure Location Rt brachial Position Sitting Pulse 65 Pulse Source Pulse Oximeter Temp 98.2 F Temp Source Temporal Artery Scan Pulse Oximetry (%) 97 Oxygen Delivery Method Room Air Intake Visit Reasons: Re: Back pain Intake Note: Juan presents in the office today for back pain. Allergies No Known Allergies Allergy (Verified 05/08/25 15:31) Tobacco use date assessed: 05/08/25 Dental Screening Dental Screen Date: 05/08/25 Did you have a dental visit in the last 12 months?: Yes Did you have a dental problem in the last 6 months where you did not have access to dental care?: No Was dental information given to patient?: Patient has dentist HPI HPI Comments History of Present Illness Details This is a 29-year-old male presenting for follow up. MRI denied because we need his notes from physical therapy. He will sign a release for this today. Request letter for work because light duty is still bothering him. He would like to have a break for a couple of weeks and then try to go back on light duty. Previously documented: Patient was initially living with his uncle, and he now lives in an apartment in [place]. 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 Back pain-he did physical therapy, and he initially noted some improvement, but his symptoms returned and are worse. He endorses lower back pain when he is bending, walking, standing, lifting. It is better when he lays down at night or if he is sitting still. The pain at worst is 8/10. It is worse during his shift says a HIDE SALTER. He requests a letter for light duty. The pain does not radiate. There is no numbness, tingling or weakness in his extremities or loss of bowel or bladder control. X-ray of the lumbar spine on 12/12/2024 showed no abnormal findings. He denies history of trauma. Past treatments include acetaminophen, lidocaine patches, ibuprofen and cyclobenzaprine. He received a phone call to schedule an appointment with physiatry. Patient seen by Heme-Onc. No infectious or hematological malignancy identified as the cause of mild thrombocytopenia and mild leukopenia. He has a follow up scheduled in June. ROS: Constitutional: No unexplained weight loss, fever, chills, fatigue or night sweats. Eyes: No vision changes, blurry vision, double vision, eye pain, eye redness, eye discharge.. Respiratory: No shortness of breath, cough or sputum production. Cardiovascular: No chest pain, chest pressure or chest discomfort. No palpitations or pedal edema. Gastrointestinal: No anorexia, nausea, vomiting or diarrhea. No abdominal pain or blood in stool. Genitourinary: No dysuria, hematuria, urinary frequency. Neurologic: No headache, dizziness, syncope, unilateral weakness, ataxia, numbness or tingling in the extremities or saddle distribution. Musculoskeletal: see HPI Hematologic/Lymphatics: No bleeding or bruising. No painful lymph nodes. Skin: No rash or itching. Physical exam: Constitutional: Alert, in no distress. Respiratory: Clear to auscultation. Cardiovascular: S1 S2 regular. No murmurs. Musculoskeletal: Patient has lower back pain with flexion and extension and rotation of the lumbar spine. He has full range of motion. There is no midline spinal tenderness. Negative straight leg raises bilaterally. Lower extremity strength 5/5 bilaterally. Normal gait. Psychiatric: Normal mood and affect [facility] Medical History (Updated 04/22/25 @ 10:48 by Abbi Wetzel MD) Thrombocytopenia Leukopenia Routine physical examination LFT elevation Abnormal CBC Pain, dental Pain, dental Situational depression Screening for cardiovascular condition Screening examination for STI Lumbago Social History (Updated 05/08/25 @ 15:32 by Rosi Campos MA) Household Members: Family Housing: Apartment Alcohol intake: never Patient Tobacco Use Status: Never used Tobacco e-Cigarette/Vaping Use: Never Used Second Hand Smoke Exposure: No Use of substances other than those prescribed or required for medical reasons: No service: No Current occupational status: employed and unemployed 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 Current occupational exposures/hazards: No Cognitive needs: No Hearing needs: No Vision needs: No Questionnaire Thrive Questionnaire Date Thrive assessed: 01/06/25 I am a: Patient What is your living situation today?: I have a steady place to live Within the past 12 months, did the food you bought not last and you didn't have the money to get more?: Sometimes True Within the past 12 months, did you worry whether your food would run out before you got money to buy more?: Sometimes True Do you have trouble paying for medicines?: Yes Do you have trouble getting transportation to medical appointments?: Yes Do you have trouble paying your heating and electricity bill?: Yes Do you have trouble taking care of your child, family member or friend?: Yes Do you have trouble with day-to-day activities such as bathing, preparing meals, shopping, managing finances, etc.?: No Are you currently unemployed and looking for a job?: Yes Are you interested in more education?: Yes Currently or been in a relationship where the following occur: Controlled Financially THRIVE Score: 5 STANTON-7 AMB Questionnaire STANTON-7 Date STANTON - 7 assessed: 02/17/25 Source: Developed by Drs. Ismael Morrison, Gabriella Anderson, Kem Santiago and colleagues, with an educational sandee from [employer]. Physical exam (Primary Care) Vital Signs: Last Vital Signs Temp 98.2 F 05/08/25 15:32 Pulse 65 05/08/25 15:32 BP 102/82 05/08/25 15:32 Pulse Ox 97 05/08/25 15:32 Oxygen Delivery Method Room Air 05/08/25 15:32 BMI result Body Mass Index 26.0 Tobacco/Smoking Status: Tobacco use Status Tobacco use date assessed 05/08/25 05/08/25 15:35 Patient Tobacco Use Status Never used Tobacco 05/08/25 15:32 e-Cigarette/Vaping Use Never Used 05/08/25 15:32 Thrive Assessment: Date of Thrive Assessment Date Thrive assessed 01/06/25 05/08/25 15:29 Currently or been in a relationship where the following occur: Controlled Financially Coding Level of Care Code Est Pt Level 4 (46771) Complex EM visit Add On G2211 Diagnoses Lumbago M54.50 Abnormal CBC R79.89 Assessment & Plan Assessment & Plan (1) Lumbago: Code(s): M54.50 - Low back pain, unspecified Category: Medical Plan: The patient has persistent symptoms despite NSAIDs, physical therapy and modifying activity. I provided him with a note for work. Proceed with MRI of the lumbar spine for evaluation of potential disc herniation, spondylosis, nerve compression. We will request physical therapy records to submit to the insurance. He can continue with Tylenol 500 to a 1000 mg every 8 hours needed as needed for pain, lidocaine patches, alternating with he denies. Advised to avoid NSAIDs at this time given thrombocytopenia. Physiatry consult pending. (2) Abnormal CBC: Code(s): R79.89 - Other specified abnormal findings of blood chemistry Category: Medical Plan: No evidence of infection or cancer per hematology workup. He has a follow up scheduled. Plan Follow up to be determined based on MRI.
[2025-05-08 15:32] VITALS: BP 102/82; PULSE 65; TEMP 36.8; O2SAT 97; BMI 26.0
== END 2025-05-08 15:56 | disposition home or self-care (01) ==
LOC: HO.HMCFM 14:56
PROVIDERS: PCP Physician Assistant Medical; Visit Provider Physician Assistant Medical
DX: M54.50 Low back pain, unspecified (principal); R79.89 Other specified abnormal findings of blood chemistry

== ENCOUNTER 2025-06-16 08:59 | Outpatient (AMB) | payer OTHER, SELFPAY ==
--- NOTE | 2025-06-16 09:02 | A.OFFPC_ITS ---
Vital Signs 06/16/25 09:06 Height 5 ft 8 in Weight 175 lb BMI 26.6 BP 108/80 Blood Pressure Location Lt brachial Position Sitting Pulse 96 Pulse Source Pulse Oximeter Temp 98.2 F Temp Source Temporal Artery Scan Pulse Oximetry (%) 96 Oxygen Delivery Method Room Air Intake Visit Reasons: follow up back pain Intake Note: Juan presents in the office to follow up on his back pain. Allergies No Known Allergies Allergy (Verified 06/16/25 09:05) Medication List - Last Reconciled 06/17/25 by ELIZABETH Mcdaniel Tobacco use date assessed: 06/16/25 Dental Screening Dental Screen Date: 06/16/25 Did you have a dental visit in the last 12 months?: Yes Did you have a dental problem in the last 6 months where you did not have access to dental care?: No Was dental information given to patient?: Patient has dentist HPI HPI Comments History of Present Illness Details This is a 29-year-old male presenting for follow up. MRI denied because we need his notes from physical therapy. We contacted [facility] for these, and he signed a release, but we have not received them yet. 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 He has missed work due to back pain. He is working again on light duty. I gave him a new letter for this today. 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 He is using a back brace. It helps provide support. His pain is the same or he says possibly worse. Endorses 9/10 pain. It bothers him no matter what he does. Now it is going down the back of the left leg sometimes. No numbness, tingling or weakness in the legs. No loss of bowel or bladder control. Treatments including acetaminophen, lidocaine patches, Ibuprofen and cyclobenzaprine help temporarily only so he does not really take anything. He wants a permanent solution. He brought paperwork to show his claim was denied by workman's comp. He is requesting we send the note from today's visit, and he is going to contact were rinse comp to see if an independent evaluation with the physician reviewer we will be done. Previously documented: Patient was initially living with his uncle, and he now lives in an apartment in [place]. 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 Back pain-he did physical therapy, and he initially noted some improvement, but his symptoms returned and are worse. He endorses lower back pain when he is bending, walking, standing, lifting. It is better when he lays down at night or if he is sitting still. The pain at worst is 8/10. 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 He requests a letter for light duty. The pain does not radiate. There is no numbness, tingling or weakness in his extremities or loss of bowel or bladder control. X-ray of the lumbar spine on 12/12/2024 showed no abnormal findings. He denies history of trauma. Past treatments include acetaminophen, lidocaine patches, ibuprofen and cyclobenzaprine. He was referred to physiatry. He saw [facility] 05/12/25 who recommended further PT, but he has not done this due to a claim denial through workmens compensation. Patient seen by Heme-Onc. No infectious or hematological malignancy identified as the cause of mild thrombocytopenia and mild leukopenia. He has a follow up scheduled 07/07/25. ROS: Constitutional: No unexplained weight loss, fever, chills, fatigue or night sweats. Eyes: No vision changes, blurry vision, double vision, eye pain, eye redness, eye discharge.. Respiratory: No shortness of breath, cough or sputum production. Cardiovascular: No chest pain, chest pressure or chest discomfort. No palpitations or pedal edema. Gastrointestinal: No anorexia, nausea, vomiting or diarrhea. No abdominal pain or blood in stool. Genitourinary: No dysuria, hematuria, urinary frequency. Neurologic: No headache, dizziness, syncope, unilateral weakness, ataxia, numbness or tingling in the extremities or saddle distribution. Musculoskeletal: see HPI Hematologic/Lymphatics: No bleeding or bruising. No painful lymph nodes. Skin: No rash or itching. Physical exam: Constitutional: Alert, in no distress. Respiratory: Clear to auscultation. Cardiovascular: S1 S2 regular. No murmurs. Musculoskeletal: Patient has lower back pain with flexion and extension of the lumbar spine today. No pain with rotation and lateral bending today.. He has full range of motion. There is no midline spinal tenderness. Negative straight leg raises bilaterally. Lower extremity strength 5/5 bilaterally. Normal gait. Symmetric patellar reflexes. No heel drop or ankle drop with gait testing. 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 Current occupational exposures/hazards: No Cognitive needs: No Hearing needs: No Vision needs: No Questionnaire Thrive Questionnaire Date Thrive assessed: 01/06/25 I am a: Patient What is your living situation today?: I have a steady place to live Within the past 12 months, did the food you bought not last and you didn't have the money to get more?: Sometimes True Within the past 12 months, did you worry whether your food would run out before you got money to buy more?: Sometimes True Do you have trouble paying for medicines?: Yes Do you have trouble getting transportation to medical appointments?: Yes Do you have trouble paying your heating and electricity bill?: Yes Do you have trouble taking care of your child, family member or friend?: Yes Do you have trouble with day-to-day activities such as bathing, preparing meals, shopping, managing finances, etc.?: No Are you currently unemployed and looking for a job?: Yes Are you interested in more education?: Yes Currently or been in a relationship where the following occur: Controlled Financially THRIVE Score: 5 STANTON-7 AMB Questionnaire STANTON-7 Date STANTON - 7 assessed: 02/17/25 Source: Developed by Drs. Ismael Morrison, Gabriella Anderson, Kem Santiago and colleagues, with an educational sandee from [employer]. Physical exam (Primary Care) Vital Signs: Last Vital Signs Temp 98.2 F 06/16/25 09:06 Pulse 96 06/16/25 09:06 BP 108/80 06/16/25 09:06 Pulse Ox 96 06/16/25 09:06 Oxygen Delivery Method Room Air 06/16/25 09:06 BMI result Body Mass Index 26.6 Tobacco/Smoking Status: Tobacco use Status Tobacco use date assessed 06/16/25 06/16/25 09:09 Patient Tobacco Use Status Never used Tobacco 06/16/25 09:02 e-Cigarette/Vaping Use Never Used 06/16/25 09:02 Thrive Assessment: Date of Thrive Assessment Date Thrive assessed 01/06/25 06/16/25 09:02 Currently or been in a relationship where the following occur: Controlled Financially Coding Level of Care Code Est Pt Level 4 (93415) Complex EM visit Add On G2211 Diagnoses Lumbago M54.50 Abnormal CBC R79.89 Assessment & Plan Assessment & Plan (1) Lumbago: Code(s): M54.50 - Low back pain, unspecified Category: Medical Plan: The patient has persistent symptoms despite NSAIDs, physical therapy and modifying activity. Work note updated for light duty until medically cleared. He is seeing physiatry. He has not started PT again due to workman's comp denial. He was told he will need to go through his medical insurance to proceed with treatment, but he plans to fight the denial from workman's comp. MRI is recommended to evaluate for potential disc herniation, spondylosis, nerve compression. Physical therapy records requested again. Insurance will not approve MRI until these are reviewed. He can continue with Tylenol 500 to a 1000 mg every 8 hours needed as needed for pain, lidocaine patches, alternating with he denies. Advised to avoid NSAIDs at this time given thrombocytopenia. (2) Abnormal CBC: Code(s): R79.89 - Other specified abnormal findings of blood chemistry Category: Medical Plan: No evidence of infection or cancer per hematology workup. He has a follow up scheduled. Plan Follow up in 8 weeks.
[2025-06-16 09:06] VITALS: BP 108/80; PULSE 96; TEMP 36.8; O2SAT 96; BMI 26.6
== END 2025-06-16 09:35 | disposition home or self-care (01) ==
LOC: HO.HMCFM 09:00
PROVIDERS: PCP Physician Assistant Medical; Visit Provider Physician Assistant Medical
DX: M54.50 Low back pain, unspecified (principal); R79.89 Other specified abnormal findings of blood chemistry

== ENCOUNTER 2025-08-18 13:30 | Outpatient (AMB) | payer OTHER, SELFPAY ==
--- NOTE | 2025-08-18 13:34 | A.OFFPC_ITS ---
Vital Signs 08/18/25 13:36 Height 5 ft 8 in Weight 175 lb 8 oz BMI 26.7 BP 120/64 Blood Pressure Location Lt brachial Position Sitting Respiration 14 Pulse 65 Pulse Source Pulse Oximeter Temp 98.1 F Temp Source Oral Pulse Oximetry (%) 97 Oxygen Delivery Method Room Air Intake Visit Reasons: back pain Intake Note: Lower back pain. 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 Patient requested office visit notes for back pain be sent to workman's comp for his claim. I will send a message to the work group regarding this. Previously documented: Patient was initially living with his uncle, and he now lives in an apartment in [place]. 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 Back pain-he did physical therapy, and he initially noted some improvement, but his symptoms returned and are worse. He endorses lower back pain when he is bending, walking, standing, lifting. It is better when he lays down at night or if he is sitting still. The pain at worst is 8/10. It is worse during his shift says a COMMUNICATION SKILLS INSTRUCTOR. He requests a letter for light duty. The pain does not radiate. There is no numbness, tingling or weakness in his extremities or loss of bowel or bladder control. X-ray of the lumbar spine on 12/12/2024 showed no abnormal findings. He denies history of trauma. Past treatments include acetaminophen, lidocaine patches, ibuprofen and cyclobenzaprine. He was referred to physiatry. He saw [facility] 05/12/25. He is doing physical therapy at [facility]. MRI was not authorized by insurance because we did not receive physical therapy notes despite requesting. He is going there tomorrow, and he is going to request that they send the notes to the office. 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 He is using a back brace. It helps provide support. His pain is the same or he says possibly worse. Endorses 9/10 pain. It bothers him no matter what he does. Pain radiates down the back of the left leg sometimes. No numbness, tingling or weakness in the legs. No loss of bowel or bladder control. Treatments including acetaminophen, lidocaine patches, Ibuprofen and cyclobenzaprine help temporarily only so he does not really take anything now. He started seeing a chiropractor in [place], [place]. He has been seen there 8 times. The 1st week he noticed some improvement, but his symptoms returned to baseline after that. Bicytopenia-seen by [facility]Onc for follow up in June. no infectious or hematological malignancy identified. Suspect benign or autoimmune. Instructed to follow up in 6 months. ROS: Constitutional: No unexplained weight loss, fever, chills, fatigue or night swea ts. Eyes: No vision changes, blurry vision, double vision, eye pain, eye redness, eye discharge.. Respiratory: No shortness of breath, cough or sputum production. Cardiovascular: No chest pain, chest pressure or chest discomfort. No palpitations or pedal edema. Gastrointestinal: No anorexia, nausea, vomiting or diarrhea. No abdominal pain or blood in stool. Genitourinary: No dysuria, hematuria, urinary frequency. Neurologic: No headache, dizziness, syncope, unilateral weakness, ataxia, numbness or tingling in the extremities or saddle distribution. Musculoskeletal: see HPI Hematologic/Lymphatics: No bleeding or bruising. No painful lymph nodes. Skin: No rash or itching. Physical exam: Constitutional: Alert, in no distress. Respiratory: Clear to auscultation. Cardiovascular: S1 S2 regular. No murmurs. Musculoskeletal: Patient has lower back pain with flexion and extension of the lumbar spine. He has full range of motion. No pain with rotation and lateral bending today. There is no midline spinal tenderness. Negative straight leg raises bilaterally. Lower extremity strength 5/5 bilaterally. Normal gait. Symmetric patellar reflexes. No heel drop or ankle drop with gait testing. 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 Current occupational exposures/hazards: No Cognitive needs: No Hearing needs: No Vision needs: No Questionnaire Thrive Questionnaire Date Thrive assessed: 01/06/25 I am a: Patient What is your living situation today?: I have a steady place to live Within the past 12 months, did the food you bought not last and you didn't have the money to get more?: Sometimes True Within the past 12 months, did you worry whether your food would run out before you got money to buy more?: Sometimes True Do you have trouble paying for medicines?: Yes Do you have trouble getting transportation to medical appointments?: Yes Do you have trouble paying your heating and electricity bill?: Yes Do you have trouble taking care of your child, family member or friend?: Yes Do you have trouble with day-to-day activities such as bathing, preparing meals, shopping, managing finances, etc.?: No Are you currently unemployed and looking for a job?: Yes Are you interested in more education?: Yes Currently or been in a relationship where the following occur: Controlled Financially THRIVE Score: 5 AUDIT C Alcohol Use Questionnaire (AUDIT-C) 1. How often do you have a drink containing alcohol?: Never 3. How often do you have six or more drinks on one occasion?: Never Total Score: 0 STANTON-7 AMB Questionnaire STANTON-7 Date STANTON - 7 assessed: 02/17/25 Source: Developed by Drs. Ismael Morrison, Gbariella Anderson, Kem Santiago and colleagues, with an educational sandee from [employer]. Physical exam (Primary Care) Vital Signs: Last Vital Signs Temp 98.1 F 08/18/25 13:36 Pulse 65 08/18/25 13:36 Resp 14 08/18/25 13:36 BP 120/64 08/18/25 13:36 Pulse Ox 97 08/18/25 13:36 Oxygen Delivery Method Room Air 08/18/25 13:36 BMI result Body Mass Index 26.7 Tobacco/Smoking Status: Tobacco use Status Tobacco use date assessed 08/18/25 08/18/25 13:39 Patient Tobacco Use Status Never used Tobacco 08/18/25 13:39 e-Cigarette/Vaping Use Never Used 08/18/25 13:39 Thrive Assessment: Date of Thrive Assessment Date Thrive assessed 01/06/25 08/18/25 13:39 Currently or been in a relationship where the following occur: Controlled Financially Coding Level of Care Code Est Pt Level 4 (84353) Complex EM visit Add On G2211 Diagnoses Lumbago M54.50 Abnormal CBC R79.89 Assessment & Plan Assessment & Plan (1) Lumbago: Code(s): M54.50 - Low back pain, unspecified Category: Medical Plan: The patient has persistent symptoms despite NSAIDs, physical therapy, chiropractic intervention and modifying activity. See HPI regarding workman's comp claim. He will have the physical therapist send us the notes so we can submit the request for the MRI. He can continue with Tylenol 500 to a 1000 mg every 8 hours needed as needed for pain, lidocaine patches, alternating with he denies. Advised to avoid NSAIDs at this time given thrombocytopenia. (2) Abnormal CBC: Code(s): R79.89 - Other specified abnormal findings of blood chemistry Category: Medical Plan: No evidence of infection or cancer per hematology workup. He has a follow up scheduled. Plan Follow up in 8 weeks.
[2025-08-18 13:36] VITALS: BP 120/64; PULSE 65; RESP 14; TEMP 36.7; O2SAT 97; BMI 26.7
== END 2025-08-18 14:05 | disposition home or self-care (01) ==
LOC: HO.HMCFM 13:31
PROVIDERS: PCP Physician Assistant Medical; Visit Provider Physician Assistant Medical
DX: M54.50 Low back pain, unspecified (principal); R79.89 Other specified abnormal findings of blood chemistry